=== PATIENT | female | born 1985 | race Caucasian/White ===

== ENCOUNTER 2024-02-21 19:48 | Emergency (ER) | payer MEDICAID ==
[~2024-02-21] VITALS: Ht 162.6 cm; Wt 90.1 kg
[~2024-02-21 19:48] MED LIST: DIPH25TA62 PO; HYDR28.462 TP
[2024-02-21 19:54] VITALS: BP 129/82; PULSE 98; RESP 18; TEMP 98.2; O2SAT 97
== END 2024-02-21 21:48 | disposition left against medical advice (07) ==
LOC: ER 19:48
DX: M25.562 Pain in left knee (principal); Z53.21 Procedure and treatment not carried out due to patient leaving prior to being seen by health care provider
CPT/HCPCS: 73564; 99281

== ENCOUNTER 2024-02-23 17:02 | Emergency (ER) | payer MEDICAID ==
[~2024-02-23] VITALS: Ht 162.6 cm; Wt 88.2 kg
[2024-02-23 17:06] VITALS: BP 118/80; PULSE 101; RESP 16; TEMP 98.5; O2SAT 98
== END 2024-02-23 18:00 | disposition home or self-care (01) ==
LOC: ER 17:03
DX: M25.462 Effusion, left knee (principal); M25.562 Pain in left knee; Z79.899 Other long term (current) drug therapy
CPT/HCPCS: 99281